=== PATIENT | female | born 1960 | race African-American/Black ===

== ENCOUNTER 2017-06-14 08:58 | Emergency (ER) | payer BC ==
[2017-06-14] MEDS ORDERED: Succinylcholine Chloride 20 MG/ML 10 ml SYRINGE FS ONE (09:23)
--- NOTE | 2017-06-14 09:57 | RAD ---
SINGLE VIEW OF CHEST: Date: 06/14/17 HISTORY: Endotracheal tube placement for CPR> FINDINGS: Single view of the chest shows an enlarged cardiomediastinal silhouette. There is an endotracheal tub e with its tip at the lower border of the clavicles. A MediPort is seen with its tip in the superior vena cava. Diffuse increased opacities are seen in the lungs. IMPRESSION: 1. Diffuse increased opacity in the lungs may represent pulmonary edema or multifocal infiltrates. 2. Cardiomegaly. 3. Appropriate position of endotracheal tube. POS: [facility]
[2017-06-14] MEDS ORDERED: EPINEPHrine 1 MG, Admixture Fee 1 EACH in Dextrose 5% in Water 250 ML IVPB SCH ×3 (10:00)
== END 2017-06-14 10:02 | disposition expired ==
LOC: ERS 08:58 → EDBD 08:58 → ERS 10:02
DX: I46.9 Cardiac arrest, cause unspecified (principal); J96.90 Respiratory failure, unspecified, unspecified whether with hypoxia or hypercapnia
CPT/HCPCS: 31500; 71045; 92950; 96374; 96375; 96376; J0171; J7070